=== PATIENT | female | born 1995 | race Caucasian/White ===

== ENCOUNTER → 2016-11-09 16:40 | Observation (INO) ==
--- NOTE | 2016-11-09 16:57 | Discharge Summary ---
Date of Encounter: 11/09/16 Time of Encounter: 16:30 - Discharge Diagnosis (1) Decreased movement Priority: Primary Status: Acute Comments: - monitoring reassuring. -Return precautions of no movement. -Follow-up in the office next week. - Discharge Medications Home Medications: Buspar 07/05/16 [History] Ondansetron ODT [Zofran ODT] 07/05/16 [History] Reglan 07/05/16 [History] Allergies/Adverse Reactions: Allergies No Known Allergies Allergy (Verified 07/05/16 14:17) Data Procedures and tests throughout hospitalization: monitoring. Normal heart rate. - Impressions Patient presented to [facility] delivery after reporting decreased movements. She states she has not felt them in several days. She was seen yesterday in the office and found to have a reassuring heart rate. Monitoring here also showed a reassuring heart rate. We will discharge patient with instructions to continue to monitor for movements. And follow-up in the office next week. All questions were answered. Date of admission: 11/09/16 15:12 - Patient Status Disposition: Home, Self-Care Condition: Good Functional capacity at discharge: independent ambulation Overall status at discharge: patient is back to baseline - Discharge Instructions Additional Instructions: LABOR AND DELIVERY DISCHARGE INSTRUCTIONS Signs and Symptoms to be Reported to your Doctor Immediately: * Sudden gush, continuous or intermittent lead of fluid from vagina (note the time of gush and color of fluid) * Onset of bright red vaginal bleeding with or without pain (if you had a vaginal exam during this visit you may notice some dark red spotting. This is normal.) * Contractions that are 5 minutes apart (from the beginning of one contraction to the beginning of the next) and last 45-60 seonds; contractions that you can no longer walk, talk or laugh through. * A change in the baby's activity. This could be an increase or decrease in activity. * Severe headache which does not go away with tylenol. * Sudden swelling in the face, hands, arms and/or legs. * Upper abdominal pain - sometimes associated with heartburn or nausea and is not relieved by Maalox, Mylanta or Tums. * Kick Counts __ One hour after a meal, lay down on one side in a quiet place. Count the number of time the baby moves during an hour. If less than 6 movements, notify your physician Diet: *Force fluids, 8 to 10 tall glasses of fluid per day - may include popsicles and jello *Limit caffeine - this includes chocolate, coffee, tea, any soft drink containing such as all shilpa, Piero Yellow and Mountain Dew - Diet and Activity Activity: resume usual activities as tolerated Diet: advance to your usual diet Hospital Course ICE SCRAPER Time Attestation: Total time spent providing and/or coordinating discharge services: Exam - Constitutional General appearance IM: A&O X 3, no acute distress, answers questions appropriately - Respiratory Respiratory exam: Present: CTAB. Absent: decreased breath sounds, respiratory distress, rhonchi, stridor, wheezes, tachypnea - Cardiovascular Cardiovascular exam IM: Present: RRR. Absent: irregular rhythm - GI/Abdominal GI/Abdominal exam IM: normal bowel sounds, soft (Gravid) - Uterine Tone: Firm - Extremities Exam Extremities exam IM: Present: full ROM, normal capillary refill, normal inspection. Absent: calf tenderness, joint swelling, pedal edema, tenderness - Neurological Exam Neurological exam: alert, oriented X3 - Psychiatric Additional comments: Normal affect and normal mood. - Skin Additional comments: No rashes present. - VTE Reasons for not Prescribing Prophylaxis: Treatment not Indicated - Low risk for VTE
== END | disposition home or self-care (01) ==
LOC: 1NENULAB
PROVIDERS: ADMIT Obstetrics & Gynecology; ATTEND Obstetrics & Gynecology

== ENCOUNTER 2016-11-12 07:58 | Inpatient (IN) ==
[2016-11-12] MEDS ORDERED: Ringers Solution, Lactated 1,000 ML ONE ×3 (08:09→11:12)
--- NOTE | 2016-11-12 08:24 | Anesthesia Evaluation PreOp ---
Date of Encounter: 11/12/16 Time of Encounter: 08:20 - Past History Planned Operation: Repeat Cardiac History: Denies any Significant Hx Pulmonary History: Denies Any Significant HX LINE DRIVER History: Denies Any Significant HX Other Medical History: Denies Any Significant HX Anesthesia History: No Prior Anesthetic Complications : Yes (39 weeks) Alcohol Use: none Drug use: none Medications and Allergies Buspar 07/05/16 [History] Ondansetron ODT [Zofran ODT] 07/05/16 [History] Reglan 07/05/16 [History] Allergies No Known Allergies Allergy (Verified 07/05/16 14:17) - Meds/Allergy Pre-op Review Medications Reviewed: Yes Allergies Reviewed: Yes Beta Blockers on Current Med List: No Anesthesia Results - Labs Laboratory Tests 07/05/16 10/18/16 15:50 14:50 WBC 20.1 H Hgb 11.9 Hct 33.6 L Plt Count 239 Sodium 136 Potassium 3.5 BUN 8 Creatinine 0.58 Anesthesia Exam O2 Sat Height 1.63 m Weight 92.6 kg Height: 5'4 Weight: 204 lbs NPO (# of Hours): MN - HEENT Pupil (Motor): Pupils equal, EOMI Mallampati: II Teeth: Normal Oral Opening: Greater than 3 - LINE DRIVER LOC: Oriented LINE DRIVER Motor: Normal RUE, Normal LUE, Normal RLE, Normal LLE, Normal Face LINE DRIVER Sensory: Normal: RUE, LUE, RLE, LLE, Face - Cardiac Rhythm: Regular Murmur: None JVD: No Carotid Bruit: No - Pulmonary Breath Sounds: bilateral Clear Respiratory Effort: Symmetrical Anesthesia Assess/Plan ASA Score: 2 Modified Bere Scale for Level of Consciousness: Cooperative, oriented, and tranquil Anesthetic Plan: Regional Monitoring Plan: Standard Monitors Recovery Plan: PACU (Discussed SAB, possible GA, agrees to proceed)
[2016-11-12] MEDS ORDERED: Famotidine 20 MG/2 ML VIAL IVP ONE (08:32)
[2016-11-12] MEDS ORDERED: CeFAZolin Pre 2,000 MG/100 ML 2,000 MG/100 ML BAG IVPB ONE (08:32)
[2016-11-12] MEDS ORDERED: Ringers Solution, Lactated 1,000 ML IVC ONE (08:32)
[2016-11-12] MEDS ORDERED: Metoclopramide 10 MG/2 ML VIAL IVP ONE (08:32)
--- NOTE | 2016-11-12 08:37 | OB/GYN History & Physical ---
Date of Encounter: 11/12/16 Time of Encounter: 08:30 Assessment and Plan (1) and not yet delivered in third trimester Current visit: Yes Status: Acute (2) 39 weeks gestation of Current visit: Yes Status: Acute (3) Previous section complicating Current visit: Yes Status: Acute Patient is scheduled for a repeat low transverse section with bilateral partial salpingectomy (4) Family planning advice Current visit: Yes Status: Acute History of Present Illness HPI: Ms. Farley is a 21 year old female 3 para 2 at 39-0/7 weeks by a 12-4/7 week ultrasound who presented for repeat section with bilateral partial salpingectomy. Patient has a history of 2 previous sections has been scheduled for repeat. Patient does not want anymore children has signed tubal papers the risks and benefits of a tubal ligation was explained to patient with failure rate of 5-8 per thousand with increased risk of ectopic if was to occur. Patient's was not having any movement at the end of last week to get an NST in the office and did show up on labor and delivery with NST was also performed both reactive she did start feeling baby move the last 2 days. She denies any contractions no leaking of fluid or vaginal discharge itching or burning. Past Med Surg Social Fam HX - Past Medical History Medical history: no medical history Psychiatric history: depression - Past Surgical History Surgical History: (Times 2) - Social History Smoking Status: Current every day smoker Packs per day: .25 Smokeless Tobacco Status: Yes Alcohol use: none Drug use: none Occupational status: unemployed Current living situation: Home - Independent Activity Level: Independent ambulation Recent Out of Country Travel Within the Last 8 Weeks: No Exposure or Possible Exposure to Illness During Travel: No - Family History Mother History Unknown: Yes Adopted: No Living Status: Still Living Hx Family Cardiac Disorders: No Hx Family Respiratory Disorders: No Hx Family Cancer: No Hx Family GI Disorders: No Hx Family Endocrine Disorder: No Hx Family Neuromuscular Disorders: No Hx Family Neurologic Disorders: No Hx Family HEENT Disorders: No Hx Family Autoimmune Disorders: No - Additional Family History Additional family history: Family history noncontributory at this time Obstetrical History - Pregnancies : 3 Para: 2 Term: 2 : 0 Ab's: 0 Livin Medications and Allergies Buspar 07/05/16 [History] Ondansetron ODT [Zofran ODT] 07/05/16 [History] Reglan 07/05/16 [History] Allergies No Known Allergies Allergy (Verified 07/05/16 14:17) Review of System OB All systems PM: reviewed and no additional remarkable complaints except as stated Exam - Vital Signs Vital signs: Initial Vital Signs Temp Pulse Resp BP 97.2 F L 107 14 147/73 11/12/16 07:59 11/12/16 07:59 11/12/16 07:59 11/12/16 07:59 - Constitutional Constitutional: well developed, well nourished, no acute distress, average body habitus - HEENT HEENT: PERRL, Mucus Membranes Moist - Lungs Respiratory exam: CTAB - Cardiovascular Cardiovascular exam: RRR - Abdomen Abdomen: Present: bowel sounds normal, gravid - Cervix Dilation: 0 Effacement: 50 Station: -3 ( heart tones 140s reactive occasional contractions seen) Results All other labs normal.
[2016-11-12] MEDS ORDERED: Oxytocin 20 units/ LR 1000 mL 20 UNIT/1,000 ML BAG IVC SCH (08:45)
[2016-11-12] MEDS ORDERED: Ringers Solution, Lactated 1,000 ML IVC SCH ×2 (08:45→13:36)
[2016-11-12 09:06] LABS: Basophils % 0.2 %; Eosinophils # 0.1 K/mcL (0.0-0.6); Eosinophils % 0.7 %; Hematocrit 30.9 % (35.3-44.9); Immature Platelets 15.8 % (1.1-6.1); Lymphocytes # 3.5 K/mcL (0.6-4.6); Lymphocytes % 19.7 %; Mean Corpuscular HGB Conc 35.6 g/dL (31.6-35.5); Mean Corpuscular Hemoglobin 28.1 pg (28.0-33.3); Mean Platelet Volume 12.1 fL (9.4-12.4); Monocytes # 1.2 K/mcL (0.0-1.3); Monocytes % 6.9 %; Neutrophils # 12.7 K/mcL (1.6-8.9); Platelet Count 192 K/mcL (140-400); Red Blood Count 3.91 M/mcL (3.82-4.97); Red Cell Distribution Width 12.9 % (11.5-14.5); Segmented Neutrophils % 71.5 %
[2016-11-12 09:19] LABS: Alanine Aminotransferase 9 Units/L (0-55); Aspartate Amino Transferase 12 Units/L (5-34); BUN/Creatinine Ratio 11 (6-26); Blood Urea Nitrogen 6 mg/dL (7-20); Lactate Dehydrogenase 162 Units/L (159-327); Uric Acid 4.1 mg/dL (2.6-6.0); eGFR For African Americans > 60 (> 60); eGFR For Non-African Americans > 60 (> 60)
[2016-11-12] MEDS ORDERED: *HR* Morphine Sulfate/PF 5 MG/10 ML AMPUL ONE (09:54)
[2016-11-12] MEDS ORDERED: *HR* FentaNYL (PF) 100 MCG/2 ML VIAL ONE (09:54)
[2016-11-12] MEDS ORDERED: EPHEDrine 50 MG/ML VIAL ONE (09:54)
[2016-11-12] MEDS ORDERED: *HR* Oxytocin 10 UNIT/ML VIAL IM ONE ×2 (10:20→11:13)
[2016-11-12] MEDS ORDERED: Ondansetron 4 MG/2 ML VIAL ONE (10:23)
[2016-11-12] MEDS ORDERED: *HR* Morphine 2 MG/ML SYRINGE IVP PRN ×2 (10:45)
[2016-11-12] MEDS ORDERED: *HR* Meperidine 50 MG/ML SYRINGE IVP PRN (10:45)
[2016-11-12] MEDS ORDERED: Ketorolac 30 MG/ML VIAL IVP ONE (10:45)
[2016-11-12] MEDS ORDERED: Ondansetron 4 MG/2 ML VIAL IVP ONE (10:45)
--- NOTE | 2016-11-12 11:33 | OB/GYN Procedure Note ---
Section - Date of procedure: 11/12/16 Preop diagnosis: desires repeat , desires sterilization Post-op diagnosis: same Procedure: repeat low transverse, bilateral tubal ligation Surgeon: Stan Cordova Estimated blood loss (cc): 800 Rod Bending Machine Operator: Alayna Reinoso ([id number]) Anesthesiologist: Sergey Kumar Retail Sales Clerk: Jennifer Huynh Anesthesia Type: Spinal section complications: none Disposition: L&D Recovery Room Specimens: Right tube segment, Left tube segment - Infant (s) Infant A Delivery Date: 11/12/16 Infant Delivery Time: 10:31 Presentation: vertex Position: EVGENY Route of delivery: other ( section) Gender: Male Viability: Viable Pounds: 8 Ounces: 4 Gram Weight: 3.74 kg at 1 minute: 8 at 5 minutes: 9 Shoulder Dystocia: not encountered Placenta: complete extraction Cord: 3 umbilical vessels - Narrative Narrative: Patient is a 21-year-old 3 para 2 at 39-0/7 weeks who presented to labor and delivery for repeat section with tubal ligation. She has had 2 previous sections and was scheduled for repeat. Patient is 100% sure about getting her tubes tied. The risks and benefits were explained to the patient with a failure rate of 5-8 per thousand with increased risk of ectopic if was to occur Procedure: Patient was taken the operating room where spinal anesthesia was found be adequate. She was placed in the dorsal supine position with leftward tilt prepped and draped in usual fashion. Timeout was then obtained. A Pfannenstiel incision was then made removing her old scar. Incision was then carried down until the fascia was identified. Fascia was nicked in midline extended laterally with the Eubanks scissors. The superior and inferior edges of the fascia were grasped tented up and dissected off the rectus muscles. Rectus muscles were in midline parietal peritoneum was identified tented up and entered sharply. This was extended superiorly and inferiorly with Metzenbaum scissors. The bladder blade was inserted the vesicouterine peritoneum was identified tented up and entered sharply. The low uterine segment was incised with a scalpel and extended laterally with digital manipulation. Membranes were ruptured clear fluid identified minimal fluid noted. The infant's head was then fully delivered no nuchal was identified the body was fully delivered and the cord was clamped and cut and infant was handed off to waiting pediatric team. Placenta was then manually removed uterus was exteriorized and cleaned of all clots and debris. The lower uterine segment was then closed using an 0 Vicryl in a running locking stitch March related closure. The incision that extended into the broad ligament on the right we did have some bleeding from the ascending uterine vessels and [id number] suture was then used to get hemostasis under control. No bleeding was noted attention was then turned to the fallopian tube. At the ampullary region of the tube using O plain a 2 cm portion of tube was suture ligated including the fimbriated ends and that distal end of the fallopian tube was removed. Good hemostasis was noted we repeated the same procedure on the opposite side. Good hemostasis was noted ovaries are normal uterus was then returned to the abdomen and gutters were cleaned of all clots and debris then copiously irrigated. No active bleeding was noted the parietal peritoneum was then brought together using a running 0 Vicryl stitch. Fascia was then closed using a #1 stratafix in a running stitch and the skin was closed using a 4-0 Vicryl in a subcuticular manner. All needles lap sponge counts were correct 3 she did receive preoperative antibiotics. She will be observed 2 hours before being taken floor.
[2016-11-12] MEDS ORDERED: *HR* OxyCODONE/APAP 10/325 TABLET PO PRN (13:36)
[2016-11-12] MEDS ORDERED: Oxytocin 20 units/ LR 1000 mL 20 UNIT/1,000 ML BAG IV SCH (13:36)
[2016-11-12] MEDS ORDERED: Sennosides 8.6 MG TABLET PO PRN (13:36)
[2016-11-12] MEDS ORDERED: Ondansetron 4 MG/2 ML VIAL IVP PRN (13:36)
[2016-11-12] MEDS ORDERED: Metoclopramide 10 MG/2 ML VIAL IVP PRN (13:36)
[2016-11-12] MEDS: Oxytocin 20 units/ LR 1000 mL 20 UNIT/1,000 ML BAG IV SCH ×2 (13:43→21:34)
[2016-11-12] MEDS: *HR* OxyCODONE/APAP 5/325 TABLET PO PRN ×2 (16:37→20:54)
[2016-11-12] MEDS: Ibuprofen 600 MG TABLET PO PRN (19:58)
[2016-11-13 04:09] LABS: Basophils % 0.1 %; Eosinophils # 0.1 K/mcL (0.0-0.6); Eosinophils % 0.7 %; Immature Granulocytes % 0.6 % (0-4); Lymphocytes # 2.8 K/mcL (0.6-4.6); Lymphocytes % 16.4 %; Mean Corpuscular HGB Conc 35.8 g/dL (31.6-35.5); Mean Corpuscular Hemoglobin 28.5 pg (28.0-33.3); Mean Corpuscular Volume 79.8 fL (83.0-100.0); Mean Platelet Volume 12.8 fL (9.4-12.4); Monocytes # 1.3 K/mcL (0.0-1.3); Monocytes % 7.5 %; Neutrophils # 12.8 K/mcL (1.6-8.9); Nucleated Red Blood Cells 0.1 /100 WBC (0); Platelet Count 172 K/mcL (140-400); Red Blood Count 3.26 M/mcL (3.82-4.97); Red Cell Distribution Width 12.7 % (11.5-14.5); Segmented Neutrophils % 74.7 %
[2016-11-13 04:13] LABS: Hemoglobin 9.3 g/dL (11.5-15.4)
[2016-11-13] MEDS: Prenatal Vit/FA 1 EACH TABLET PO SCH (08:37)
--- NOTE | 2016-11-13 08:39 | OB/GYN Progress Note ---
Date of Encounter: 11/13/16 Time of Encounter: 08:37 - Assessment and Plan (1) Status post delivery Current Visit: Yes Status: Acute Pt meeting POD#1 milestones. Await spontaneous void and flatus. Anticipate discharge home POD#2. (2) anemia Current Visit: Yes Status: Acute PP hgb 9.3. Pt on iron. Subjective - Subjective Interval history: Pt meeting POD#1 milestones. Mccormack removed this am. Await spontaneous void. Await flatus. Patient reports: appetite normal, pain well controlled Hartley: doing well Objective - Vital Signs Latest vital signs: Vital Signs Temp Pulse Pulse Resp BP Pulse Ox 11/13/16 07:56 98.6 F 93 16 106/65 98 11/13/16 04:51 98.5 F 105 105 14 106/68 99 11/13/16 01:21 98.5 F 97 97 18 96/58 98 11/12/16 19:40 98.4 F 100 16 105/63 99 11/12/16 16:35 98.0 F 98 16 107/68 98 11/12/16 15:35 97.9 F 112 16 104/64 11/12/16 14:39 97.6 F 97 18 107/66 97 11/12/16 14:37 97.6 F 97 18 107/66 97 11/12/16 14:05 98.0 F 89 16 97/52 98 11/12/16 13:35 98.0 F 102 18 131/73 98 Intake and Output 11/12/16 11/13/16 11/13/16 23:59 07:59 15:59 Intake Total 1550 / 1550 400 / 400 Output Total 975 / 975 1800 / 1800 Balance 575 / 575 -1400 / -1400 Intake: IV Fluids 950 / 950 Pitocin 20 unit In 1,000 950 / 950 ml @ 125 mls/hr IV .Q8H [facility] Rx#:[id number] Oral 600 / 600 400 / 400 Output: Urine 1400 / 1400 Catheter 975 / 975 400 / 400 Other: Weight 90.7 kg Patient Weight 11/13/16 23:59 Weight 90.7 kg - Exam Lungs: bilateral: normal Chest: Normal S1, Normal S2 Extremities: Present: normal, edema (mild edema) Abdomen: Present: soft Incision: Present: dressed (dressing dry and intact) Uterus: Present: firm - Labs Labs: Laboratory Results - last 24 hr 11/12/16 11/12/16 11/13/16 08:41 08:54 03:50 WBC 17.8 H 17.2 H RBC 3.91 3.26 L Hgb 11.0 L 9.3 L D Hct 30.9 L 26.0 L MCV 79.0 L 79.8 L MCH 28.1 28.5 MCHC 35.6 H 35.8 H RDW 12.9 12.7 Plt Count 192 172 MPV 12.1 12.8 H Immature Gran % 1.0 0.6 Seg Neutrophils % 71.5 74.7 Lymphocytes % 19.7 16.4 Monocytes % 6.9 7.5 Eosinophils % 0.7 0.7 Basophils % 0.2 0.1 Neutrophils # 12.7 H 12.8 H Lymphocytes # 3.5 2.8 Monocytes # 1.2 1.3 Eosinophils # 0.1 0.1 Basophils # 0.0 0.0 Nucleated RBCs/100 WBC 0.1 H Immature Plt Fraction 15.8 H BUN 6 L Creatinine 0.55 L Est GFR ( Amer) > 60 Est GFR (Non-Af Amer) > 60 BUN/Creatinine Ratio 11 Uric Acid 4.1 AST 12 ALT 9 Lactate Dehydrogenase 162
[2016-11-13] MEDS: *HR* OxyCODONE/APAP 5/325 TABLET PO PRN (09:12)
[2016-11-13] MEDS: Simethicone 80 MG TAB.CHEW PO PRN (11:24)
[2016-11-13] MEDS: Ibuprofen 600 MG TABLET PO PRN ×2 (11:44→20:32)
[2016-11-14] MEDS: Ibuprofen 600 MG TABLET PO PRN (06:03)
[2016-11-14] MEDS: Simethicone 80 MG TAB.CHEW PO PRN (06:03)
[2016-11-14 07:53] VITALS: BP 114/74
[2016-11-14] MEDS: Prenatal Vit/FA 1 EACH TABLET PO SCH (08:34)
--- NOTE | 2016-11-14 09:12 | Discharge Summary ---
Date of Encounter: 11/14/16 Time of Encounter: 09:09 - Discharge Diagnosis (1) Status post delivery Priority: Primary Status: Acute Comments: Pt meeting post-op milestones. (2) anemia Priority: Secondary Status: Acute - Discharge Medications Prescriptions: OxyCODONE/APAP 5/325 [Percocet 5/325 MG] 1 each PO Q4HR PRN #30 tablet PRN Reason: Moderate pain 4-6 Ibuprofen [Motrin] 600 mg PO Q6HR PRN #60 tablet PRN Reason: Cramping Docusate [Colace] 100 mg PO BID #60 capsule Ferrous Sulfate 325 mg PO DAILY #30 tablet Home Medications: Buspar 07/05/16 [History] Buspirone HCl [Buspar] 5 mg PO BID #60 tablet 11/14/16 [Rx] Docusate [Colace] 100 mg PO BID #60 capsule 11/14/16 [Rx] Ferrous Sulfate 325 mg PO DAILY #30 tablet 11/14/16 [Rx] Ibuprofen [Motrin] 600 mg PO Q6HR PRN #60 tablet 11/14/16 [Rx] OxyCODONE/APAP 5/325 [Percocet 5/325 MG] 1 each PO Q4HR PRN #30 tablet 11/14/16 [Rx] Simethicone [Gas-X] 80 mg PO TID PRN #0 tab.chew 11/14/16 [Rx] Allergies/Adverse Reactions: Allergies No Known Allergies Allergy (Verified 07/05/16 14:17) Data Procedures and tests throughout hospitalization: Laboratory Tests 11/12/16 11/12/16 11/13/16 08:41 08:54 03:50 WBC 17.8 H 17.2 H RBC 3.91 3.26 L Hgb 11.0 L 9.3 L D Hct 30.9 L 26.0 L MCV 79.0 L 79.8 L MCH 28.1 28.5 MCHC 35.6 H 35.8 H RDW 12.9 12.7 Plt Count 192 172 MPV 12.1 12.8 H Immature Gran % 1.0 0.6 Seg Neutrophils % 71.5 74.7 Lymphocytes % 19.7 16.4 Monocytes % 6.9 7.5 Eosinophils % 0.7 0.7 Basophils % 0.2 0.1 Neutrophils # 12.7 H 12.8 H Lymphocytes # 3.5 2.8 Monocytes # 1.2 1.3 Eosinophils # 0.1 0.1 Basophils # 0.0 0.0 Nucleated RBCs/100 WBC 0.1 H Immature Plt Fraction 15.8 H BUN 6 L Creatinine 0.55 L Est GFR ( Amer) > 60 Est GFR (Non-Af Amer) > 60 BUN/Creatinine Ratio 11 Uric Acid 4.1 AST 12 ALT 9 Lactate Dehydrogenase 162 Date of admission: 11/12/16 07:58 Primary care physician: Nga Hatch CNP Discharging clinician: Isamar Howard Anticipated date of discharge: 11/14/16 - Patient Status Disposition: Home, Self-Care Condition: Good Functional capacity at discharge: independent ambulation Overall status at discharge: patient is progressing back to baseline - Discharge Instructions Follow Up With: Nga Hatch CNP [Primary Care Provider] - Stan Cordova DO [Partnered Physician] - - Diet and Activity Activity: increase activity as tolerated Diet: advance to your usual diet Hospital Course Reason for admission: section Delivery: section Episiotomy: none Laceration: none Other procedures: tubal ligation complications: none Discharge diagnosis: IUP at term delivered baby: male Hospital course: - Date of procedure: 11/12/16 Preop diagnosis: desires repeat , desires sterilization Post-op diagnosis: same Procedure: repeat low transverse, bilateral tubal ligation Surgeon: Stan Cordova Estimated blood loss (cc): 800 Automatic Pattern Edger: Alayna Reinoso ([id number]) Anesthesiologist: Sergey Kumar Mail Processor: Jennifer Huynh Anesthesia Type: Spinal section complications: none Disposition: L&D Recovery Room Specimens: Right tube segment, Left tube segment - Infant (s) A Delivery Date: 11/12/16 Infant Delivery Time: 10:31 Presentation: vertex Position: EVGENY Route of delivery: other ( section) Gender: Male Viability: Viable Pounds: 8 Ounces: 4 Gram Weight: 3.74 kg at 1 minute: 8 at 5 minutes: 9 Shoulder Dystocia: not encountered Placenta: complete extraction Cord: 3 umbilical vessels Time Attestation: Total time spent providing and/or coordinating discharge services: Time Spent: Less than 30 minutes - VTE Documentation of Mechanical Device: Intermittent pneumatic compression device Exam - Constitutional Vitals: Temp Pulse Resp BP Pulse Ox 97.9 F 88 16 114/74 98 11/14/16 07:52 11/14/16 07:52 11/14/16 07:52 11/14/16 07:52 11/14/16 07:52 General appearance IM: A&O X 3, pleasant, no acute distress - Respiratory Respiratory exam: Present: CTAB - Cardiovascular Cardiovascular exam IM: Present: RRR, +S1, +S2 - GI/Abdominal GI/Abdominal exam IM: soft, no peritoneal signs Incision: intact Additional comments: no s/sx infection - Rectal Rectal exam: deferred - Uterine Tone: Firm Uterus Position: At Umbilicus - Extremities Exam Extremities exam IM: Present: normal capillary refill - Neurological Exam Neurological exam: normal gait, oriented X3 - Psychiatric Additional comments: reports good mood, was on Buspar during and plans to continue - Other Additional findings: OARRS reviewed.
== END 2016-11-14 11:20 | disposition home or self-care (01) | DRG 540 ==
LOC: 1NENULAB 07:58 → 1NENUOBS 13:27
PROVIDERS: ADMIT Obstetrics & Gynecology; ATTEND Obstetrics & Gynecology